=== PATIENT | female | born 1950 | race Caucasian/White ===

== ENCOUNTER 2021-12-23 02:17 | Emergency (ER) | payer BC ==
[~2021-12-23] VITALS: Ht 162.6 cm; Wt 98.4 kg
[2021-12-23 03:29] LABS: CARBON DIOXIDE 24 mmol/L (21-32); CHLORIDE 95 mmol/L (98-107); CREATININE 0.5 mg/dL (0.6-1.3); HEMATOCRIT 37.2 % (31.2-41.9); MEAN CORPUSCULAR HEMOGLOBIN 27.9 uug (24.7-32.8); MEAN CORPUSCULAR VOLUME 84.3 fL (75.5-95.3); PLATELET COUNT (AUTO) 259 K/uL (179-408); POTASSIUM 4.1 mmol/L (3.5-5.1); UREA NITROGEN, BLOOD 10 mg/dL (7-18)
[2021-12-23 03:31] LABS: GLUCOSE 358 mg/dL (74-106)
--- NOTE | 2021-12-23 04:09 | NUR ---
PT IS IN ROOM #2A. DR KAPLAN EVALUATED THE PT.
[2021-12-23] MEDS ORDERED: PROCHLORPERAZINE EDISYLATE 10 MG/2 ML VIAL IV ONE (04:30)
[2021-12-23] MEDS ORDERED: HYDROMORPHONE 1 MG/1 ML DISP.SYRIN IV ONE (04:30)
[2021-12-23] MEDS ORDERED: KETOROLAC TROMETHAMINE 30 MG INJ IVP ONE (04:30)
[2021-12-23] MEDS ORDERED: OXYC-128 PO (04:34)
[2021-12-23] MEDS ORDERED: PROC-11 PO (04:34)
[2021-12-23] MEDS ORDERED: PROCHLORPERAZINE EDISYLATE 10 MG/2 ML VIAL ONE (04:43)
[2021-12-23] MEDS ORDERED: KETOROLAC TROMETHAMINE 30 MG INJ ONE (04:43)
[2021-12-23 04:44] LABS: *BILIRUBIN,URIN NEGATIVE (NEGATIVE); *BLOOD, URINE NEGATIVE (NEGATIVE); *COLOR,URINE YELLOW (YELLOW); *KETONES,URINE 3+ (NEGATIVE); LEUKOCYTE ESTERASE ,URINE NEGATIVE (NEGATIVE); NITRITE, URINE NEGATIVE (NEGATIVE); PH,URINE 5.5 (5.0-8.0); UGLUCOSE 3+ (NEGATIVE)
[2021-12-23] MEDS ORDERED: HYDROMORPHONE 1 MG/1 ML DISP.SYRIN ONE (04:44)
[2021-12-23 04:46] LABS: *CLARITY,URINE HAZY (CLEAR)
[2021-12-23 05:06] LABS: BACTERIA,URINE FEW /HPF (NONE SEEN); RBC,URINE 0-3 /HPF (0-3); SQUAMOUS EPITHELIAL CELL,UR MODERATE /HPF (NONE SEEN)
--- NOTE | 2021-12-23 05:33 | NUR ---
PT WAS D/C'd TO HOME. D/C INSTRUCTIONS GIVEN TO THE PT BY DR KAPLAN.
[2021-12-23 05:34] VITALS: BP 132/84
== END 2021-12-23 05:35 | disposition home or self-care (01) ==
LOC: ER 02:17
DX: S40.011A Contusion of right shoulder, initial encounter (principal); W01.0XXA Fall on same level from slipping, tripping and stumbling without subsequent striking against object, initial encounter; Y92.019 Unspecified place in single-family (private) house as the place of occurrence of the external cause; R94.31 Abnormal electrocardiogram [ECG] [EKG]; R00.0 Tachycardia, unspecified; M17.0 Bilateral primary osteoarthritis of knee; E11.65 Type 2 diabetes mellitus with hyperglycemia; Z86.011 Personal history of benign neoplasm of the brain; I87.8 Other specified disorders of veins; Z88.0 Allergy status to penicillin
CPT/HCPCS: 36415; 72072; 72100; 73020; 73560 ×2; 80048; 81001; 85025; 93005; 96374; 96375; 99285; J0780; J1170; J1885; A4663